=== PATIENT | female | born 1950 | race Two or more races ===

== ENCOUNTER → 2023-12-13 07:40 | Outpatient (REF) | payer MEDICARE, BC, SELFPAY | LOC: HWRAD 07:40 | PROVIDERS: ATTENDING PHYSICIAN Internal Medicine | DX: Z12.31 Encounter for screening mammogram for malignant neoplasm of breast (principal); Z78.0 Asymptomatic menopausal state | CPT/HCPCS: 77063; 77067; 77080 ==

== ENCOUNTER → 2025-03-06 13:14 | Outpatient (REF) | payer MEDICARE, BC, SELFPAY | LOC: HWWDC 13:14 | PROVIDERS: ATTENDING PHYSICIAN Internal Medicine | DX: Z12.31 Encounter for screening mammogram for malignant neoplasm of breast (principal) | CPT/HCPCS: 77063; 77067 ==